=== PATIENT | female | born 1965 | race Caucasian/White ===

== ENCOUNTER 2018-08-20 21:41 | Emergency (ER) | payer MEDICAID ==
[~2018-08-20] VITALS: Ht 165.1 cm; Wt 66.0 kg
[~2018-08-20 21:41] MED LIST: BUSPIRONE; ESCI20TA36 PO; TRAZ150T78 PO
[2018-08-20 22:42] VITALS: BP 138/84
[2018-08-21] MEDS ORDERED: ACETAMINOPHEN 325MG TABLET PO ONE (00:30)
[2018-08-21] MEDS ORDERED: TRAMADOL 50MG TABLET PO ONE (00:30)
[2018-08-21 00:50] LABS: BASOPHILS % 1.2 % (0.0-2.0); EOSINOPHILS % 1.4 % (0.0-5.0); HEMATOCRIT. 40.3 % (36.0-48.0); LYMPHOCYTES % 24.7 % (20.0-50.0); MEAN CORPUSCULAR HEMOGLOBIN 26.6 pg (28.0-32.0); MEAN CORPUSCULAR VOLUME 82.5 fL (81.0-99.0); MEAN PLATELET VOLUME 8.5 fl (7.4-10.4); MONOCYTES % 9.6 % (2.0-8.0); NEUTROPHILS % 63.1 % (40.0-76.0); PLATELET 292 x1000/uL (130-400); RED BLOOD CELL COUNT 4.88 mill/uL (4.2-5.4)
[2018-08-21 00:56] LABS: CHLORIDE 104 mEq/L (98-107)
== END 2018-08-21 01:52 | disposition home or self-care (01) ==
LOC: ER 21:41
DX: R07.89 Other chest pain (principal); J45.909 Unspecified asthma, uncomplicated; F12.10 Cannabis abuse, uncomplicated; F17.210 Nicotine dependence, cigarettes, uncomplicated
CPT/HCPCS: 36415; 71045; 83880; 84484; 93005; 99284